=== PATIENT | male | born 1990 | race Caucasian/White ===

== ENCOUNTER 2017-10-10 12:49 | Emergency (ER) | payer OTHER ==
[~2017-10-10] VITALS: Ht 175.3 cm; Wt 112.5 kg
[~2017-10-10 12:49] MED LIST: ACETAMINOPHEN-1 EAC1 PO; FLEXERIL PO; IBUPROFEN 800800 MG PO; NAPROSYN500 MG PO; NORCO 5-325 TA1 EACH PO; NYSTATIN 1100000 U/M SW&SWALLOW; ROBAXIN500 MG PO
[2017-10-10] MEDS ORDERED: TESSALON PERLE100 MG PO (13:10)
[2017-10-10] MEDS ORDERED: MOUTHPIECE1 EACH INH (13:10)
[2017-10-10] MEDS ORDERED: ZPAK PO (13:10)
[2017-10-10] MEDS ORDERED: NYSTATIN100000 UNI PO (13:10)
[2017-10-10 13:20] VITALS: BP 119/77
== END 2017-10-10 13:20 | disposition home or self-care (01) ==
LOC: M.ERS 12:49
DX: J20.9 Acute bronchitis, unspecified (principal); B37.9 Candidiasis, unspecified; J45.909 Unspecified asthma, uncomplicated; M25.512 Pain in left shoulder; G89.29 Other chronic pain; M19.90 Unspecified osteoarthritis, unspecified site